=== PATIENT | male | born 1975 | race African-American/Black ===

== ENCOUNTER 2023-03-08 13:27 | Emergency (ER) | payer BC, OTHER ==
[2023-03-08 14:48] LABS: HBSAB Concentration Less than 8.00 mIU/mL; HIV (1/2) Antibody/Antigen Non-Reactive (NonReactive); HIV 1/2 INDEX 0.15 S/CO (<1.00); Hep B Surf AB Non-Reactive (NonReactive); Hep C IgG Ab Non-Reactive S/CO (NonReactive); Hep C Index 0.07 S/CO (0-0.79)
== END 2023-03-08 14:58 | disposition home or self-care (01) ==
LOC: ERS 13:27
DX: Z77.21 Contact with and (suspected) exposure to potentially hazardous body fluids (principal); I10 Essential (primary) hypertension; E78.5 Hyperlipidemia, unspecified
CPT/HCPCS: 36415; 99283